=== PATIENT | female | born 1940 | race Caucasian/White ===

== ENCOUNTER 2017-01-21 10:43 | Emergency (ER) | payer BC, MEDICARE ==
[~2017-01-21] VITALS: Ht 160 cm; Wt 68.2 kg
[~2017-01-21 10:43] MED LIST: CALCIUM200 MG PO; FISH OIL SUPER1 SGL PO; LIPITOR 10MG10 MG PO; PRINZIDE 12.5 M1 TAB PO
[2017-01-21 10:47] VITALS: TEMP 98.5
[2017-01-21 11:54] LABS: BASO % 0.1 % (0.0-2.0); EOS % 0.5 % (0-4.0); GRAN # 6.7 (1.4-6.5); GRAN % 80.7 % (42.2-75.2); HEMATOCRIT 42.7 % (37.0-47.0); HEMOGLOBIN 14.9 g/dl (12.5-16.0); LYMPH % 12.4 % (20.0-51.0); MEAN CELL VOLUME 92 fl (80.0-100.0); MEAN CORPUSCULAR HEMOGLOBIN 32 pg (27.0-31.0); MEAN CORPUSCULAR HGB CONC 35 g/dl (33.0-37.0); MEAN PLATELET VOLUME 9.5 fl (7.4-10.4); MONO # 0.5 (0.1-0.6); MONO % 5.9 % (1.7-9.3); PLATELET COUNT 208 K/mm3 (130-400); RED BLOOD COUNT 4.66 M/mm3 (4.10-5.30); WHITE BLOOD COUNT 8.3 K/mm3 (4.8-10.8)
[2017-01-21 11:59] LABS: INR 0.9 (0.8-3.0); PROTHROMBIN TIME 10.4 SECONDS (9.7-12.8)
[2017-01-21 12:02] LABS: PARTIAL THROMBOPLASTIN TIME 27.8 SECONDS (26.0-37.0)
[2017-01-21 12:14] LABS: ADJUSTED CALCIUM 8.9 mg/dL (8.4-10.2); ALANINE AMINOTRANSFERASE 25 U/L (9-52); ALBUMIN 4.2 gm/dL (3.5-5.0); ALKALINE PHOSPHATASE 44 U/L (50-136); ANION GAP 11 mmol/L (7-16); BLOOD UREA NITROGEN 24 mg/dL (7-17); CALCIUM 9.1 mg/dL (8.4-10.2); CARBON DIOXIDE 25 mmol/L (22-30); CHLORIDE 96 mmol/L (98-107); CREATININE, serum 0.71 mg/dL (0.52-1.25); GLUCOSE 90 mg/dL (74-106); SODIUM 132 mmol/L (137-145)
[2017-01-21 12:24] LABS: TROPONIN-I < 0.012 ng/mL (0.000-0.034)
[2017-01-21] MEDS ORDERED: MOBIC15 MG PO (13:03)
[2017-01-21] MEDS ORDERED: ATIVAN 1MG T1 MG/TAB PO (13:06)
[2017-01-21 13:21] VITALS: BP 124/82; PULSE 73
== END 2017-01-21 13:22 | disposition home or self-care (01) ==
LOC: COL.ER 10:43
PROVIDERS: Emergency Medicine
DX: E86.0 Dehydration (principal); G47.00 Insomnia, unspecified; R51 Headache; I10 Essential (primary) hypertension; E78.5 Hyperlipidemia, unspecified; Z98.51 Tubal ligation status; Z98.890 Other specified postprocedural states
CPT/HCPCS: J2765; J3010; J7030

== ENCOUNTER → 2017-02-01 | Outpatient (CLI) | payer BC, MEDICARE ==
[~2017-02-01] MED LIST changes: +ATIVAN 1MG T1 MG/TAB PO; +MOBIC15 MG PO
== END ==
LOC: MC.RAD 08:38
DX: Z12.31 Encounter for screening mammogram for malignant neoplasm of breast (principal)

== ENCOUNTER → 2017-04-04 | Outpatient (CLI) | payer BC, MEDICARE | LOC: COL.RAD 07:04 | DX: M47.816 Spondylosis without myelopathy or radiculopathy, lumbar region (principal); M41.86 Other forms of scoliosis, lumbar region ==

== ENCOUNTER → 2018-02-18 | Outpatient (CLI) | payer BC, MEDICARE | LOC: MC.RAD 11:20 | DX: Z12.31 Encounter for screening mammogram for malignant neoplasm of breast (principal) ==

== ENCOUNTER → 2019-01-09 | Outpatient (CLI) | payer BC, MEDICARE | LOC: MC.RAD 13:44 | DX: N63.23 Unspecified lump in the left breast, lower outer quadrant (principal) | CPT/HCPCS: G0279 ==

== ENCOUNTER → 2023-11-28 | Outpatient (CLI) | payer BC, MEDICARE ==
[~2023-11-28] MED LIST changes: +Denosumab 60 MG/ML SYRINGE SQ ONE
[2024-01-06 10:26] VITALS: BP 153/89; PULSE 86
== END ==
LOC: COL.ER 08:00 → EUO 08:00 → COL.ER 01-06 09:54
DX: Z48.02 Encounter for removal of sutures (principal)
CPT/HCPCS: J0897

== ENCOUNTER 2023-12-31 11:45 | Emergency (ER) | payer BC, MEDICARE ==
[~2023-12-31] VITALS: Ht 160 cm; Wt 70.5 kg
[~2023-12-31 11:45] MED LIST changes: -Denosumab 60 MG/ML SYRINGE SQ ONE
[2023-12-31 11:57] VITALS: TEMP 98.6
[2023-12-31] MEDS ORDERED: Acetaminophen 500 MG TAB PO ONE (12:30)
[2023-12-31 14:38] VITALS: BP 165/94; PULSE 85
== END 2023-12-31 14:38 | disposition home or self-care (01) ==
LOC: COL.ER 11:45
DX: S63.501A Unspecified sprain of right wrist, initial encounter (principal); S01.111A Laceration without foreign body of right eyelid and periocular area, initial encounter; S80.02XA Contusion of left knee, initial encounter; W01.198A Fall on same level from slipping, tripping and stumbling with subsequent striking against other object, initial encounter; W25.XXXA Contact with sharp glass, initial encounter